=== PATIENT | male | born 1955 | race Caucasian/White ===

== ENCOUNTER → 2016-08-08 | Outpatient (CLI) | payer BC, MEDICARE ==
--- NOTE | 2016-08-08 09:25 | CR ---
EXAMINATION: Pelvis and left hip HISTORY: Pain COMPARISON: 11/27/2015 TECHNIQUE: AP pelvis and 2 views of the left hip FINDINGS: There is no acute osseous abnormality, dislocation, or fracture identified. Bone mineraliz ation and joint spaces are grossly preserved. The SI joints are symmetric. The iliopectineal lines a re intact. IMPRESSION: Grossly unremarkable pelvis and left hip.
== END ==
LOC: MW.CHORTHO 07:44
PROVIDERS: ATTEND Physician Assistant
DX: M25.552 Pain in left hip (principal); G89.29 Other chronic pain
CPT/HCPCS: 73502-26-LT; 73502-LT